=== PATIENT | female | born 1930 | race Caucasian/White ===

== ENCOUNTER 2018-11-20 08:44 | Emergency (ER) | payer MEDICARE, BC ==
[~2018-11-20] VITALS: Ht 157.5 cm; Wt 45.0 kg
[2018-11-20 10:24] VITALS: BP 141/62
== END 2018-11-20 10:34 | disposition home or self-care (01) ==
LOC: ED 08:44
DX: R04.0 Epistaxis (principal)

== ENCOUNTER 2019-11-24 | Emergency (ER) | payer MEDICARE, BC ==
[2019-11-24 16:46] LABS: URINE BILIRUBIN - DIPSTICK NEGATIVE (NEGATIVE); URINE BLOOD DIPSTICK TRACE-INTACT (NEGATIVE); URINE COLOR YELLOW; URINE GLUCOSE - DIPSTICK NEGATIVE (NEGATIVE); URINE KETONE NEGATIVE (NEGATIVE); URINE NITRITE - DIPSTICK NEGATIVE (Negative); URINE PROTEIN - DIPSTICK 100 mg/dL (NEG-TRACE); URINE UROBILINOGEN - DIPSTICK 0.2 E.U./dL (0.2)
[2019-11-24 16:51] LABS: URINE LEUK ESTERASE LARGE (NEGATIVE)
[2019-11-24 16:53] LABS: URINE WBC >100 WBC/hpf (0-5)
[2019-11-24] MEDS ORDERED: PYRIDIUM200 MG PO ×2 (17:18→17:27)
[2019-11-24] MEDS ORDERED: MACROBID100 MG PO ×2 (17:18→17:27)
[2019-11-24] MEDS ORDERED: ATORVASTATIN CA20 MG PO (17:24)
[2019-11-24] MEDS ORDERED: AMLODIPINE BESYL5 MG PO (17:24)
[2019-11-24] MEDS ORDERED: APRESOLINE25 MG/TAB PO (17:25)
[2019-11-24] MEDS ORDERED: ISOSORBIDE MONO30 MG PO (17:25)
[2019-11-24] MEDS ORDERED: CARVEDILOL12.5 MG PO (17:26)
[2019-11-24] MEDS ORDERED: XARELTO15 MG PO (17:26)
== END 2019-11-24 17:30 | disposition home or self-care (01) ==
PROVIDERS: Family Medicine
DX: N39.0 Urinary tract infection, site not specified (principal); I10 Essential (primary) hypertension; B96.20 Unspecified Escherichia coli [E. coli] as the cause of diseases classified elsewhere

== ENCOUNTER 2020-01-25 11:28 | Inpatient (IN) | payer MEDICARE, BC ==
[~2020-01-25] VITALS: Ht 157.5 cm; Wt 45.5 kg
[~2020-01-25 11:28] MED LIST: AMLODIPINE BESYL5 MG PO; APRESOLINE25 MG/TAB PO; ATORVASTATIN CA20 MG PO; CARVEDILOL12.5 MG PO; ISOSORBIDE MONO30 MG PO; MACROBID100 MG PO; PYRIDIUM200 MG PO; XARELTO15 MG PO
[2020-01-25 12:15] VITALS: BP 144/69
--- NOTE | 2020-01-25 12:15 | NUR ---
PT IS A DIRECT ADMIT. PT ORIENTED TO ROOM, CALL LIGHT, TV REMOTE. PT ASSISTED TO BATHROOM. URINE COLLECTED. IV INSERTED #22 ON LEFT FOREARM. PT ABLE TO MAKE NEEDS KNOWN. AUTOMATION CLERK WILL CONTINUE TO MONITOR
[2020-01-25] MEDS ORDERED: APRESOLINE25 MG/TAB PO (12:56)
[2020-01-25] MEDS ORDERED: CARVEDILOL12.5 MG PO (12:56)
[2020-01-25] MEDS ORDERED: ISOSORB MONO30 MG PO (12:57)
[2020-01-25] MEDS ORDERED: LIPITOR20 MG PO (12:58)
--- NOTE | 2020-01-25 12:59 | NUR ---
SPOKE WITH NURSE RACHELE AT DR LEE OFFICE IN [place]. VERIFIED MEDS AND DIRECTIONS. PER RACHELE, PT HAS EXTREME DIFFICULTY SWALLOWING PILLS SO SHE GOES BY PILL SIZE WHICH IS WHY HER DOSES/QTY/DIRECTIONS ARE UNCOMMON --SEE RECONCILE RX
[2020-01-25 14:17] LABS: URINE BILIRUBIN - DIPSTICK NEGATIVE (NEGATIVE); URINE BLOOD DIPSTICK NEGATIVE (NEGATIVE); URINE CLARITY CLEAR; URINE COLOR YELLOW; URINE GLUCOSE - DIPSTICK NEGATIVE (NEGATIVE); URINE KETONE NEGATIVE (NEGATIVE); URINE LEUK ESTERASE NEGATIVE (Negative); URINE NITRITE - DIPSTICK NEGATIVE (Negative); URINE PROTEIN - DIPSTICK 30 mg/dL (NEG-TRACE); URINE UROBILINOGEN - DIPSTICK 0.2 E.U./dL (0.2)
[2020-01-25 14:30] LABS: URINE RBC 0-2 RBC/hpf (0-5); URINE SQUAMOUS EPITHELIAL CELL FEW EPI/hpf (0-FEW); URINE WBC 0-2 WBC/hpf (0-5)
[2020-01-25 15:45] VITALS: BP 178/78
--- NOTE | 2020-01-25 16:00 | NUR ---
PATIENT RESTING COMFORTABLY IN ROOM. PT DENIES PAIN. BP DOWN TO 147/70. HAND STONER WILL CONTINUE TO MONITOR
[2020-01-25 16:10] LABS: ALKALINE PHOSPHATASE 47 u/l (38-126); ANION GAP 14 (6-22 (CALC)); BUN 55 mg/dL (8-23); BUN/CREATININE RATIO 37 (12-20 (CALC)); C-REACTIVE PROTEIN < 0.5 mg/dL (0-0.9); CARBON DIOXIDE 26 mmol/l (22-30); CHLORIDE 96 mmol/l (95-108); CREATININE 1.5 mg/dL (0.5-1.0); GFR 33 ML/MIN (>=60 (CALC)); GFR FOR AFR.AMER. 40 ML/MIN (>=60 (CALC)); POTASSIUM 4.1 mmol/l (3.5-5.1); SGOT/AST 23 u/l (9-36); SODIUM 132 mmol/l (137-146); TOTAL PROTEIN 6.6 g/dL (6.3-8.2)
[2020-01-25 16:20] LABS: BILIRUBIN, TOTAL 0.6 mg/dL (0.0-1.4)
[2020-01-25 16:24] LABS: HEMATOCRIT 32.3 % (37.0-47.0); HEMOGLOBIN 10.7 g/dl (12.0-16.0); IMMATURE GRANULOCYTES 0.5 % (0.0-5.0); MEAN CELL VOLUME 91.8 fL CALC (80.0-100.0); MEAN CORPUSCULAR HGB 30.4 pG CALC (26.0-32.0); MEAN CORPUSCULAR HGB CONC 33.1 g/dL CAL (32.0-36.0); NEUT# 4.2 thou/uL (2.00-7.15); RED BLOOD COUNT 3.52 mill/uL (4.20-5.60); RED CELL DISTRI WIDTH 13.9 % (11.5-15.5)
[2020-01-25 18:19] VITALS: BP 147/70
[2020-01-25 19:00] VITALS: BP 169/88
--- NOTE | 2020-01-25 19:00 | NUR ---
RECEIVED REPORT FROM ED NURSE PATIENT RESTING IN BED WATCHING TV REMAINS ON O2 @ 3LPM VIA NC SHALLOW, UNLABORED BREATHING, CALL LIGHT AT REACH.
--- NOTE | 2020-01-25 20:00 | NUR ---
PATIENT ALERT AND ORIENETD ABLE TO MAKE NEEDS KNONW, WITH SALINE LOCK ON LFA PATENT FLUSHES WELL, C/O OF LOW BACK PAIN WILL MEDICATE, REMAINS ON TELE, ON O2 @ 3LPM VIA NC, WITH SHALLOW, BREATHING, NOTED TO HAVE EXERTIONAL DYSPNEA, AMBULATED TO BED SIDE COMMODE AND BACK IN BED, CALL LIGHT AT REACH.
[2020-01-26] VITALS (7 sets, daily range): BP systolic 145–198; BP diastolic 58–97
--- NOTE | 2020-01-26 01:27 | NUR ---
PATIENT BP 167/70, DUE AMLODIPINE GIVEN WHICH THE PATIENT REFUSED TO TAKE EARLIER.
--- NOTE | 2020-01-26 04:07 | NUR ---
DUE LABETALOL 20 MG GIVEN IV WILL REPEAT BP.
[2020-01-26 05:06] LABS: HEMATOCRIT 32.7 % (37.0-47.0); HEMOGLOBIN 10.7 g/dl (12.0-16.0); MEAN CELL VOLUME 92.6 fL CALC (80.0-100.0); MEAN CORPUSCULAR HGB 30.3 pG CALC (26.0-32.0); MEAN CORPUSCULAR HGB CONC 32.7 g/dL CAL (32.0-36.0); RED BLOOD COUNT 3.53 mill/uL (4.20-5.60); RED CELL DISTRI WIDTH 13.9 % (11.5-15.5)
[2020-01-26 05:14] LABS: CREATININE 1.5 mg/dL (0.5-1.0); MAGNESIUM 1.6 mg/dL (1.6-2.3); POTASSIUM 3.5 mmol/l (3.5-5.1)
--- NOTE | 2020-01-26 06:02 | NUR ---
REPEATED BP 160/72 AT THIS TIME, COMFORTABLE, SHALLOW UNLABORED BREATHING, CALL LIGHT AT REACH.
--- NOTE | 2020-01-26 08:00 | NUR ---
ASSESSMENT IS COMPLETED: IV SITE IS FREE FROM REDNESS OR EDEMA. HR IS REG,PULSES ARE STRONG X4, ABD IS SOFT WITH ACTIVE BS. BREATH SOUNDS ARE CLEAR,BILATERALLY. TELE MONITOR IN PLACE. CONTINUE TO OBSERVE AND MONITOR.
--- NOTE | 2020-01-26 10:06 | NUR ---
SPOKE WITH PT RE: MEAL PT PREFERS THE [employer]ARNATION INSTANT BREAKFST ESSENTIAL TO DRINK. HAD TONSIL CA IN THE PAST.
--- NOTE | 2020-01-26 12:30 | NUR ---
PT IS RELAXING IN BED WITH NO DISTRESS NOTED. IV SITE IS FREE FROM REDNESS OR EDEMA.
--- NOTE | 2020-01-26 12:30 | NUR ---
PT IS RELAXING IN BED WITH NO DISTRESS NOTED. IV SITE IS FREE FROM REDNESS OR EDEMA.
--- NOTE | 2020-01-26 15:26 | NUR ---
DAUGHTERS INQUIRED ABOUT PT. WONDERING ABOUT AN ECHO. CARDIOLOGY IN [place] IN OCTOBER, PEDIATRIC. CUFF. PER FAMILY. BEEN DRINKING CARNATION BREAKFAST DRINK FOR THE LAST 6YRS . SOMETIMES CHOKES ON HER PILLS. TONSILECTOMY AND BOTTOM BASE OF HER TONGUE WAS REMOVED.
--- NOTE | 2020-01-26 16:30 | NUR ---
PT IS RELAXING IN BED WITH NO DISTRESS NOTED. IV SITE ISF REE FROM REDNESS OR EDEMA.
--- NOTE | 2020-01-26 19:00 | NUR ---
RECEIVED REPORT FROM DAY SHIFT PATEINT RESTING IN BED WITH WATCHING TV, NO DISCOMFORTS NOTED CALL LIGHT AT REACH.
--- NOTE | 2020-01-26 22:00 | NUR ---
PATIENT ALERT AND ORIENTED, WITH SALINE LOCK ON LEFT FOREARM G22 PATENT FLUSHES WELL, REMAINS ON TELE AFIB 78, DENIES PAIN OR DISCOMFORTS AT THIS TIME, REMAINS ON CONTINUOUS O2 @ 3LPM VIA NC, WITH EVEN UNLABORED BREATHING CALL LIGHT AT TREACH.
[2020-01-27] VITALS (9 sets, daily range): BP systolic 137–172; BP diastolic 72–93
--- NOTE | 2020-01-27 01:00 | NUR ---
PATIENT APPEARS TO BE SLEEPING WITH EYES CLOSED WITH EVEN UNLABORED BREATHING CALL LIGHT AT REACH.
--- NOTE | 2020-01-27 04:59 | NUR ---
PATIENT ASSISTED TO BED SIDE COMMODE AN ASSISTED BACK IN BED, REAMISN ON O2 @ 3LPM VIA NC, EVEN UNLABORED BREATHING CALL LIGHT AT REACH.
--- NOTE | 2020-01-27 07:30 | NUR ---
RADIOLOGY AT BEDSIDE FOR PORTABLE CXR.
--- NOTE | 2020-01-27 07:45 | NUR ---
DARLENE RECEIVED FROM MISTI REGAN. PT RESTING IN BED SEMI FOWLERS; ALERT AND ORIENTED. DENIES PAIN. RESPIRATIONS EVEN AND UNLABORED ON OXYGEN 3L VIA NC. TOWEL WRAPPED AROUND HEAD; PT STATES HER HEAD GETS COLD EASILY. BP ELEVATED; SCHEDULED MEDS GIVEN. PT UP TO BSC INDEPENDENTLY TO VOID. PLAN OF CARE REVIEWED. PT ENCOURAGED TO VERBALIZE CONCERNS. STATES UNDERSTANDING. SAFETY MEASURES IN PLACE. CALL LIGHT WITHIN REACH.
--- NOTE | 2020-01-27 11:16 | NUR ---
DR. SCHRADER AND RAOUL MCGEE AT BEDSIDE.
--- NOTE | 2020-01-27 13:41 | NUR ---
PT SITTING UP IN CHAIR; NO REQUESTS OR CONCERNS AT THIS TIME. SCHEDULED APRESOLINE GIVEN; BP 145/73. ZITHROMAX INFUSING; IV FLUSHES WELL. PT DOES NOT EAT FULL MEALS; REQUESTS ONLY MILK TO MIX HER SHAKE IN.
--- NOTE | 2020-01-27 15:43 | NUR ---
REPORT RECEIVED FROM MISTI DALLAS
--- NOTE | 2020-01-27 16:20 | NUR ---
PT RESTING IN SEMI FOWLERS POSITION;RESPIRATIONS EVEN AND UNLABORED ON O2 @ 3L VIA NC;PT DENIES ANY CURRENT PAIN OR NEEDS;TELE MONITORING IN PLACE;IV SITE PATENT;PT DENIES ANY CURRENT NEEDS AND IS ENCOURAGED TO CALL FOR ASSISTANCE IF NEEDED;FALL PRECAUTIONS IN PLACE WITH BED IN THE LOWEST POSITION AND CALL LIGHT IN REACH;WILL CONTINUE TO MONITOR
--- NOTE | 2020-01-27 17:01 | NUR ---
NICHOLAS,MANAGER EPIC AT BEDSIDE
--- NOTE | 2020-01-27 18:55 | NUR ---
REPORT RECEIVED FROM JOSE MORA. PT RESTING IN BED, NO S/S OF DISTRESS AT THIS TIME. WILL CONTINUE TO MONITOR.
--- NOTE | 2020-01-27 19:05 | NUR ---
LAB CALLED WITH COVID 19 RESULTS, PATIENT IS NEGATIVE FOR COVID 19.
--- NOTE | 2020-01-27 21:00 | NUR ---
PT RESTING IN BED. ALERT AND ORIENTED. RESPIRATIONS EVEN AND UNLABORED ON 3L OF O2 VIA NC. LUNGS SOUND CLEAR DIMINISHED. PEDAL PULSES WEAK. PT DENIES ANY PAIN OR DISCOMFORT AT THIS TIME. SAFETY PRECAUTIONS IN PLACE. WILL CONTINUE TO MONITOR.
--- NOTE | 2020-01-28 00:15 | NUR ---
PT RESTING IN BED. RESPIRATIONS EVEN AND UNLABORED ON O2 @ 3L VIA NC. NO S/S OF DISTRESS AT THIS TIME. WILL CONTINUE TO MONITOR.
[2020-01-28 00:30] VITALS: BP 153/78
--- NOTE | 2020-01-28 04:30 | NUR ---
PT RESTING IN BED NO S/S OF DISTRESS AT THIS TIME. SAFETY PRECAUTIONS IN PLACE. WILL CONTINEU TO MONITOR.
[2020-01-28 05:05] LABS: HEMATOCRIT 30.4 % (37.0-47.0); HEMOGLOBIN 10.1 g/dl (12.0-16.0); MEAN CORPUSCULAR HGB 30.9 pG CALC (26.0-32.0); MEAN CORPUSCULAR HGB CONC 33.2 g/dL CAL (32.0-36.0); RED BLOOD COUNT 3.27 mill/uL (4.20-5.60); RED CELL DISTRI WIDTH 13.9 % (11.5-15.5)
[2020-01-28 05:07] VITALS: BP 151/84
[2020-01-28 05:21] LABS: CREATININE 1.5 mg/dL (0.5-1.0); MAGNESIUM 1.6 mg/dL (1.6-2.3); POTASSIUM 3.3 mmol/l (3.5-5.1)
--- NOTE | 2020-01-28 07:10 | NUR ---
REPORT RECEIVED FROM MISTI JACOB;PT APPEARS TO BE SLEEPING IN SEMI FOWLERS POSITION;RESPIRATIONS EVEN AND UNLABORED ON O2 @ 3L VIA NC;NO S/S OF DISTRESS NOTED;TELE MONITORING IN PLACE;ALL SAFETY PRECAUTIONS NOTED WITH BED IN THE LWOEST POSITION AND CALL LIGHT IN REACH;WILL CONTINUE TO MONITOR
[2020-01-28 08:40] VITALS: BP 150/79
--- NOTE | 2020-01-28 08:40 | NUR ---
PT RESTING IN SEMI FOWLERS POSITION,A&O X3;VS OBTAINED AND ASSESSMENT COMPLETED;PT DENIES ANY CURRENT PAIN OR DISCOMFORTS,PAIN SCALE AND REPORTING EDUCATED;RESPIRATIONS EVEN AND UNLABORED ON O2 @ 3L VIA NC;ABDOMEN SOFT ON PALPATION AND ACTIVE IN ALL 4 QUADRANTS;WEAK PEDAL PULSES;SKIN INTACT;TELE MONITORING IN PLACE;#22G TO LFA FLUSHED AND PATENT,SITE APPEARS HEALTHY;PT DENIES ANY ADDITIONAL NEEDS AND IS ENCOURAGED TO CALL FOR ASSISTANCE IF NEEDED;FALL PRECAUTIONS IN PLACE WITH BED IN THE LOWEST POSITION AND CALL LIGHT IN REACH;WILL CONTINUE TO MONITOR
--- NOTE | 2020-01-28 09:12 | NUR ---
DENNIS,ANRP NOTIFIED OF PT INABILITY TO SWALLOW PO POTASSIUM, NO NEW ORDERS RECEIVED AT THIS TIME.
--- NOTE | 2020-01-28 09:35 | NUR ---
PT TRASPORTED TO [facility] AT THIS TIME IN STABLE CONDITION VIA WHEELCHAIR ACCCOMPANIED BY ROBINA MANZO.
--- NOTE | 2020-01-28 10:03 | NUR ---
PT RETURNED TO MED/SURG ROOM 278 IN STABLE CONDITION VIA WHEELCHAIR ACCOMPANIED BY ROBINA MANZO.
--- NOTE | 2020-01-28 10:26 | NUR ---
AT BEDSIDE DISCUSSING POC.
--- NOTE | 2020-01-28 11:55 | NUR ---
PT RESTING IN SEMI FOWLERS POSITION;RESPIRATIONS EVEN AND UNLABORED ON O2 @ 3L VIA NC;PT DENIES ANY CURRENT PAIN OR NEEDS;TELE MONITORING IN PLACE;IV SITE PATENT;ASSESSMENT REMAINS UNCHANGED AT THIS TIME AND IS ENCOURAGED TO CALL FOR ASSISTANCE IF NEEDED;SAFETY PRECAUTIONS REMAIN IN PLACE WITH BED IN THE LOWEST POSITION AND CALL LIGHT IN REACH;WILL CONTINUE TO MONITOR
[2020-01-28 12:08] VITALS: BP 148/76
[2020-01-28 14:45] VITALS: BP 156/81
--- NOTE | 2020-01-28 14:50 | NUR ---
SPOKE WITH PT AND PT DAUGHTER REGARDING PLANS FOR THORACENTESIS TOMORROW. BOTH PT AND FAMILY AGREE TO PROCEDURE. AND BAO FROM RADIOLOGY NOTIFIED AT THIS TIME.
--- NOTE | 2020-01-28 15:20 | NUR ---
PT APPEARS TO BE SLEEPING IN SEMI FOWLERS POSITION;RESPIRATIONS EVEN AND UNLABORED ON O2 @ 3L VIA NC;NO S/S OF DISTRESS NOTED;TELE MONITORING IN PLACE;IV ABX INFUSING WITH EASE PER ORDER;ALL SAFETY PRECAUTIONS REMAIN IN PLACE WITH BED IN THE LWOEST POSITION AND CALL LIGHT IN REACH;WILL CONTINUE TO MONITOR
[2020-01-28 19:50] VITALS: BP 156/84
--- NOTE | 2020-01-28 20:45 | NUR ---
PHYSICAL ASSEMENT COMPLETE. VS TAKEN BY ROBINA @ 1950 ASSESSED. PLAN OF CARE REVIEWED W/ PT, DENIES QUESTIONS, VERBALIZES UNDERSTANDING. DENIES NEEDS AT THIS TIME. CALL MCKENZIE WITHIN REACH, AGREES TO CALL PRN. BED LOCKED IN LOW POSITION W/ BEDRAILS UP X2, ITEMS WITHIN REACH.
[2020-01-29 01:01] VITALS: BP 148/78
--- NOTE | 2020-01-29 01:10 | NUR ---
VS TAKEN BY ROBINA @ 0100 ASSESSED. PT APPEARS TO BE SLEEPING COMFORTABLY. NO APPARENT DISTRESS. RESPIRATIONS REGULAR AND UNLABORED.CALL MCKENZIE REMAINS WITHIN REACH. BED REMAINS LOCKED IN LOW POSITION W/ BEDRAILS UP X2, ITEMS REMAIN WITHIN REACH.
[2020-01-29 01:20] VITALS: BP 148/49
[2020-01-29 05:42] VITALS: BP 171/80
[2020-01-29 06:03] LABS: CREATININE 1.6 mg/dL (0.5-1.0); MAGNESIUM 2.2 mg/dL (1.6-2.3); POTASSIUM 3.7 mmol/l (3.5-5.1)
--- NOTE | 2020-01-29 06:13 | NUR ---
VS TAKEN BY SUBCONTRACT MANAGER @ 0542 ASSESSED. PHYSICAL ASSESMENT REMAINS UNCHANGED. PT RESTING IN BED, APPEARS COMFORTABLE. DENIES PAIN, DENIES NEEDS @ THIS TIME. BED REMAINS LOCKED IN LOW POSITION W/ BEDRAILS UP X2, ITEMS REMAIN WITHIN REACH.
[2020-01-29 08:30] VITALS: BP 174/88
--- NOTE | 2020-01-29 08:30 | NUR ---
ASSESSMENT IS COMPLETED: IV SITE IS FREE FROM REDNESS OR EDEMA HR IS REG,PULSES ARE STRONG X4, ABD IS SOFT WITH ACTIVE BS. BREATH SOUNDS ARE CLEAR, DIMINISHED AND COARSE. O2 @ 3LITERS WITH NC. TELE MONITOR IN PLACE. CONTINUE TO OBSERVE AND MONITOR.
[2020-01-29 11:08] VITALS: BP 164/74
[2020-01-29 12:24] VITALS: BP 164/74
--- NOTE | 2020-01-29 12:30 | NUR ---
PT IS RELAXING IN BED WAITING FOR DISCHARGE INSTRUCTIONS. NO DISTRESS NOTED. IV SITE IS FREE FROM REDNESS OR EDEMA.
[2020-01-29] MEDS ORDERED: DOXYCYCL HYC100 MG PO (13:27)
[2020-01-29] MEDS ORDERED: LASIX 40 MG TAB40 MG PO (13:28)
--- NOTE | 2020-01-29 16:00 | NUR ---
PT RECIEVED DISCHARGE INSTRUCTIONS AND VERBLAIZED UNDERSTANDING. IV SITE DISCONITNUED CATHETER INTACT. NO REDNESS OR EDEMA. TELE MONITOR DISCONTINUED. FAMILY NOTIFIED OF INSTRUCTIONS AND ANSWERED ANY QUESTIONS THAT CAME ABOUT. PT FAMILY INQUIRED ABOUT THE HOME HEALTH AND WAS INFORMED THAT THEY MAY CALL THEM TOMORROW. ALSO IF ANY PROBLEMS TO CALL DR VIEIRA'S OFFICE ON SATURDAY, OR RETURN IF PROBLEMS OCCUR BEFORE SEEING THE DR. ALSO INQUIRED ABOUT GETTING RECORDS EXPLAINED HOW TO GET THE RECORDS. VERBALIZED UNDERSTANDING.
--- NOTE | 2020-01-29 16:54 | NUR ---
Discharge instructions given. Patient verbalizes understanding of same. Discharged in stable condition via Wheelchair to Home with family. All belongings sent with pt.
== END 2020-01-29 16:23 | DRG 291 ==
LOC: MS2 11:28
PROVIDERS: ADMIT Internal Medicine; ATTEND Internal Medicine
DX: I13.0 Hypertensive heart and chronic kidney disease with heart failure and stage 1 through stage 4 chronic kidney disease, or unspecified chronic kidney disease (principal); J18.9 Pneumonia, unspecified organism; J44.0 Chronic obstructive pulmonary disease with (acute) lower respiratory infection; J91.8 Pleural effusion in other conditions classified elsewhere; I50.9 Heart failure, unspecified; N18.9 Chronic kidney disease, unspecified; I48.91 Unspecified atrial fibrillation; I25.10 Atherosclerotic heart disease of native coronary artery without angina pectoris; Z87.891 Personal history of nicotine dependence; Z99.81 Dependence on supplemental oxygen; Z79.01 Long term (current) use of anticoagulants; Z85.818 Personal history of malignant neoplasm of other sites of lip, oral cavity, and pharynx; Z92.21 Personal history of antineoplastic chemotherapy; Z20.828 Contact with and (suspected) exposure to other viral communicable diseases; N18.3 Chronic kidney disease, stage 3 (moderate); I12.9 Hypertensive chronic kidney disease with stage 1 through stage 4 chronic kidney disease, or unspecified chronic kidney disease
CPT/HCPCS: J3475